=== PATIENT | female | born 1965 | race Caucasian/White ===

== ENCOUNTER 2025-01-13 16:31 | Emergency (ER) | payer MEDICAID ==
[~2025-01-13] VITALS: Ht 160 cm; Wt 52.0 kg
[2025-01-13 16:43] VITALS: BP 100/58; PULSE 92; RESP 18; TEMP 36.6; O2SAT 98
[2025-01-13 17:21] LABS: BASOPHILS % 0.7 % (0.0-2.0); EOSINOPHILS % 0.7 % (0.0-5.0); LYMPHOCYTES % 46.4 % (20.0-50.0); MEAN PLATELET VOLUME 8.3 fl (7.4-10.4); MONOCYTES % 7.5 % (2.0-8.0); NEUTROPHILS % 44.7 % (40.0-76.0); PLATELET 206 x1000/uL (130-400); RED BLOOD CELL COUNT 2.82 mill/uL (4.2-5.4); RED CELL DISTRIBUTION WIDTH 50.8 % (11.6-14.6)
[2025-01-13 17:29] LABS: ADD RBC MORPHOLOGY YES
[2025-01-13 17:33] LABS: HEMOGLOBIN. 7.0 g/dL (12.0-16.0)
[2025-01-13 17:34] LABS: HEMATOCRIT. 23.3 % (36.0-48.0)
[2025-01-13 17:36] LABS: CREATININE 0.6 mg/dL (0.6-1.0); UREA NITROGEN BLOOD 10 mg/dL (9-23)
[2025-01-13 17:54] LABS: PLATELET ESTIMATE NORMAL
[2025-01-13 17:55] LABS: ETHANOL BLOOD 351 mg/dL (<10)
[2025-01-13] MEDS ORDERED: KCL 20MEQ/100ML PREMIX 100 ML IV SCH (18:00)
[2025-01-13] MEDS ORDERED: CALCIUM GLUCONATE 1GM PREMIX 50 ML IV SCH (18:00)
== END 2025-01-13 21:49 | disposition left against medical advice (07) ==
LOC: ER 16:31 → EDBEDREQ 18:51 → EDBEDREQTM 18:51 → CANBEDREQ 21:46 → ER 21:49
DX: F10.229 Alcohol dependence with intoxication, unspecified (principal); E87.6 Hypokalemia; E83.51 Hypocalcemia; Z79.899 Other long term (current) drug therapy; Y90.9 Presence of alcohol in blood, level not specified
CPT/HCPCS: 36415; 36430; 70486; 80048; 80320; 85025; 86850; 86900; 86920; 99291; G0480